=== PATIENT | female | born 1945 | race African-American/Black ===

== ENCOUNTER 2017-12-30 10:35 | Outpatient (CLI) | payer OTHER | END 2017-12-30 14:36 | disposition home or self-care (01) | LOC: MAMO-SONO 10:35 | DX: Z12.31 Encounter for screening mammogram for malignant neoplasm of breast (principal); Z87.898 Personal history of other specified conditions ==

== ENCOUNTER 2018-01-03 09:04 | Outpatient (CLI) | payer OTHER | END 2018-01-03 09:28 | disposition home or self-care (01) | LOC: NUCLEAR 09:04 | DX: I10 Essential (primary) hypertension (principal); I25.10 Atherosclerotic heart disease of native coronary artery without angina pectoris; M81.0 Age-related osteoporosis without current pathological fracture; I38 Endocarditis, valve unspecified; I99.8 Other disorder of circulatory system; R01.1 Cardiac murmur, unspecified ==

== ENCOUNTER 2019-01-18 07:36 | Outpatient (CLI) | payer OTHER | END 2019-01-18 07:54 | disposition home or self-care (01) | LOC: MAMO-SONO 07:36 | DX: Z12.31 Encounter for screening mammogram for malignant neoplasm of breast (principal); Z87.898 Personal history of other specified conditions; C50.812 Malignant neoplasm of overlapping sites of left female breast; C50.811 Malignant neoplasm of overlapping sites of right female breast ==

== ENCOUNTER 2019-02-23 11:41 | Outpatient (CLI) | payer OTHER | END 2019-02-23 12:27 | disposition home or self-care (01) | LOC: EKG 11:41 → LAB 11:41 → EKG 12:27 | DX: R07.89 Other chest pain (principal) ==

== ENCOUNTER → 2020-09-04 | Outpatient (CLI) | payer OTHER | END | disposition home or self-care (01) | LOC: MAMO-SONO 10:00 | PROVIDERS: ATTEND Internal Medicine Sports Medicine | DX: D24.2 Benign neoplasm of left breast (principal); Z12.31 Encounter for screening mammogram for malignant neoplasm of breast; N64.59 Other signs and symptoms in breast ==